=== PATIENT | female | born 1950 | race Caucasian/White ===

== ENCOUNTER 2023-04-17 17:53 | Observation (INO) | payer MEDICARE, OTHER ==
[2023-04-17 20:25] LABS: Absolute Neutrophil Ct (ANC) 3.36 x10^3/uL (1.4-6.9); BASOPHIL % 0.3 % (0.0-0.4); Basophil (Absolute #) 0.02 x10^3/uL (0-0.4); Eosinophil % 3.7 % (0.00-5.0); Eosinophil (Absolute #) 0.23 x10^3/uL (0-0.5); Hematocrit 40.2 % (35-47); Hemoglobin 13.8 g/dL (12.0-16.0); IMMATURE GRAN # 0.02 x10^3u/L (0.00-0.03); IMMATURE GRAN % 0.3 % (0.00-0.4); Lymphocyte (Absolute #) 1.89 x10^3/uL (1.0-4.6); Lymphocytes % 30.1 % (24.0-44.0); Mean Cell Volume 90.5 fL (78-100); Mean Corpuscular Hemoglobin 31.1 pg (26-32); Mean Corpuscular Hgb Concent. 34.3 g/dL (32-36); Mean Platelet Volume 9.4 fL (7.5-11.0); Monocyte (Absolute #) 0.75 x10^3/uL (0.0-1.3); Neutrophil % 53.6 % (36.0-66.0); Platelet Count 193 x10^3/uL (150-450); Red Blood Count 4.44 x10^6/uL (4.1-5.4); Red Cell Distribution Width 12.5 % (11.5-14.0); White Blood Count 6.3 x10^3/uL (4.0-10.5)
[2023-04-17 20:40] LABS: ALBUMIN 4.3 g/dL (3.5-5.0); ALKALINE PHOSPHATASE 77 U/L (38-126); ANION GAP 10.3 MEQ/L (5-15); BLOOD UREA NITROGEN 19 mg/dL (7-17); CHLORIDE 98 mmol/L (98-107); Calcium 9.3 mg/dL (8.4-10.2); Carbon Dioxide 35 mmol/L (22-30); Creatinine 1 0.76 mg/dL (0.52-1.04); EST GLOMERULAR FILTRATION RATE > 60.0 ML/MIN; Glucose 83 mg/dL (74-106); SGOT/AST 37 U/L (14-36); SGPT/ALT 25 U/L (0-35); SODIUM 140 mmol/L (137-145); Total Protein 7.5 g/dL (6.3-8.2)
[2023-04-17 20:45] LABS: Potassium 2.6 mmol/L (3.5-5.1)
[2023-04-17] MEDS ORDERED: Klor Con PO ONE ×2 (20:49→21:09)
[2023-04-17] MEDS ORDERED: MAGNESIUM SULF 2 G/50 ML BAG 2 GM/50 ML PIGGYBACK IV SCH (21:00)
--- NOTE | 2023-04-17 21:06 | ERPHSYRPT ---
- History of Present Illness Time Seen by Provider: 04/17/23 20:59 Source: patient Exam Limitations: no limitations Patient Subjective Stated Complaint: Pt states "My dr had me get blood work today and my potassium was just over 2" Triage Nursing Assessment: Pt presented alert and oriented X 3, skin pwd. Pt ambulates with an upright steady gait, able to speak in clear full sentences. PT able to speka in clear full sentences. PT resting comfortalby on the bed. Physician History: Patient is a 72-year-old female presents to our ED as a referral from her nurse practitioner for treatment of hypokalemia. Patient is currently on a diuretic for blood pressure control. Patient is not on a standard blood pressure medicat ion due to allergy. Patient states she feels weak. No trauma. No fever. No nausea vomiting or diaphoresis. Symptoms are constant. Symptoms are moderate in intensity. No specific worsening improving factors. Patient voices no other complaints or concerns at this time. Portions of this note were created with voice recognition technology. There may be grammatical, spelling, punctuation or sound alike errors Timing/Duration: today Severity: moderate Associated Symptoms: denies symptoms, weakness Allergies/Adverse Reactions: diatrizoate sodium [From Hypaque] Allergy (Severe, Verified 04/17/23 18:23) anaphylaxis doxepin Allergy (Severe, Verified 04/17/23 18:23) trouble breathing, headache Penicillins Allergy (Severe, Verified 04/17/23 18:23) anaphylaxis prochlorperazine [From Compazine] Allergy (Severe, Verified 04/17/23 18:23) anaphylaxis pentobarbital [From Nembutal Sodium] Allergy (Unknown, Verified 04/17/23 18:23) acrivastine [From Semprex-D] Adverse Reaction (Severe, Verified 04/17/23 18:23) chest pain pseudoephedrine [From Semprex-D] Adverse Reaction (Severe, Verified 04/17/23 18:23) chest pain Bifidobacterium animalis [From Pamine FQ] Adverse Reaction (Intermediate, Verified 04/17/23 18:23) bloating and cramps estrogens, conjugated [From Premarin] Adverse Reaction (Intermediate, Verified 04/17/23 18:23) itching and ross Lactobacillus acidophilus [From Pamine FQ] Adverse Reaction (Intermediate, Verified 04/17/23 18:23) bloating and cramps Lactobacillus paracasei [From Pamine FQ] Adverse Reaction (Intermediate, Verified 04/17/23 18:23) bloating and cramps meloxicam Adverse Reaction (Intermediate, Verified 04/17/23 18:23) cramping abdominal pain nabumetone [From Relafen] Adverse Reaction (Intermediate, Verified 04/17/23 18:23) esophageal and abdominal injury omeprazole [From Prilosec] Adverse Reaction (Intermediate, Verified 04/17/23 18:23) pain under left breast scopolamine [From Pamine FQ] Adverse Reaction (Intermediate, Verified 04/17/23 18:23) bloating and cramps Streptococcus thermophilus [From Pamine FQ] Adverse Reaction (Intermediate, Verified 04/17/23 18:23) bloating and cramps indomethacin [From Indocin] Adverse Reaction (Mild, Verified 04/17/23 18:23) nausea/vomiting savilla Allergy (Intermediate, Uncoded 04/17/23 18:23) Hives viactin Adverse Reaction (Severe, Uncoded 04/17/23 18:23) diarrhea/abdominal pain shingles vaccine Adverse Reaction (Intermediate, Uncoded 04/17/23 18:23) headache, hot, itchy, pain, welts Home Medications: Amitriptyline HCl 10 mg PO DAILY 04/17/23 [History] Cyclobenzaprine HCl 10 mg [Cyclobenzaprine 10 MG] 10 mg PO TID 04/17/23 [History] Diclofenac Sodium [Voltaren Arthritis Pain] 50 gm TP BID 04/17/23 [History] Famotidine/Ca Carb/Mag Hydrox [Pepcid Complete Tablet Chew] 1 each PO DAILY 04/17/23 [History] Gabapentin 600 mg PO QID 04/17/23 [History] Metronidazole Vag Gel [METROGEL Vag Gel 0.75%] 70 gm VG DAILY PRN 04/17/23 [History] Pantoprazole Sodium 40 mg PO DAILY 04/17/23 [History] Polyethylene Glycol 3350 [Miralax] 17 gm PO DAILY 04/17/23 [History] Zonisamide 50 mg PO BID 04/17/23 [History] hydroCHLOROthiazide [Hydrochlorothiazide] 25 mg PO DAILY 04/17/23 [History] Hx Tetanus, Diphtheria Vaccination/Date Given: No Hx Influenza Vaccination/Date Given: Yes Hx Pneumococcal Vaccination/Date Given: No Immunizations Up to Date: No Travel Risk - International Travel Have you traveled outside of the country in past 3 weeks: No - Coronavirus Screening Are you exhibiting any of the following symptoms?: No Close contact with a COVID-19 positive Pt in past 14-21 Days: No - Vaccine Status Have you 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 - Vaccination Dates Date of 2cond Vaccination (if applicable): 2020 - Review of Systems Constitutional: No Symptoms, No Fever, No Chills Eyes: No Symptoms Ears, Nose, & Throat: No Symptoms Respiratory: No Symptoms, No Cough, No Dyspnea Cardiac: No Symptoms, No Chest Pain, No Edema, No Syncope Abdominal/Gastrointestinal: No Symptoms, No Abdominal Pain, No Nausea, No Vomiting, No Diarrhea Genitourinary Symptoms: No Symptoms, No Dysuria Musculoskeletal: No Symptoms, No Back Pain, No Neck Pain Skin: No Symptoms, No Rash Neurological: No Symptoms, No Dizziness, No Focal Weakness, No Sensory Changes Psychological: No Symptoms Endocrine: No Symptoms Hematologic/Lymphatic: No Symptoms Immunological/Allergic: No Symptoms All Other Systems: Reviewed and Negative - Past Medical History Pertinent Past Medical History: Yes Neurological History: Migraines, Seizures, TIA ENT History: Cataracts Cardiac History: High Cholesterol, Hypertension Respiratory History: No Pertinent History Endocrine Medical History: Other Musculoskeletal History: Degenerative Disk Disease, Fibromyalgia, Other GI Medical History: Gallbladder Disease, Other History: Other Psycho-Social History: No Pertinent History Female Reproductive Disorders: Other Other Medical History: renal cyst. thyroid cyst. bladder trouble. endometrial hyperplasia. bulging disc - Past Surgical History Past Surgical History: Yes Cardiac: No Pertinent History Respiratory: No Pertinent History Gastrointestinal: Cholecystectomy Genitourinary: No Pertinent History Musculoskeletal: No Pertinent History Female Surgical History: Tubal Ligation - Social History Smoking Status: Never smoker Exposure to second hand smoke: No Drug Use: none Patient Lives Alone: No - Nursing Vital Signs Nursing Vital Signs: Initial Vital Signs Temperature 97.2 F 04/17/23 18:03 Pulse Rate 96 H 04/17/23 18:03 Respiratory Rate 20 04/17/23 18:03 Blood Pressure 182/80 04/17/23 18:03 O2 Sat by Pulse Oximetry 95 04/17/23 18:03 Pain Scale Pain Intensity 2 - Physical Exam General Appearance: no apparent distress, alert Eye Exam: PERRL/EOMI, eyes nml inspection Ears, Nose, Throat Exam: normal ENT inspection, TMs normal, pharynx normal, moist mucous membranes Neck Exam: normal inspection, non-tender, supple, full range of motion Respiratory Exam: normal breath sounds, lungs clear, airway intact, No respiratory distress Cardiovascular Exam: regular rate/rhythm, normal heart sounds, normal peripheral pulses Gastrointestinal/Abdomen Exam: soft, normal bowel sounds, No tenderness, No mass Back Exam: normal inspection, normal range of motion, No CVA tenderness, No vertebral tenderness Extremity Exam: normal inspection, normal range of motion, pelvis stable Neurologic Exam: alert, oriented x 3, cooperative, normal mood/affect, nml cerebellar function, nml station & gait, sensation nml, No motor deficits Skin Exam: normal color, warm, dry, No rash Lymphatic Exam: No adenopathy SpO2 Interpretation: normal SpO2: 96 O2 Delivery: Room Air - Course Nursing assessment & vital signs reviewed: Yes EKG Interpreted by Me: RATE ([id number]), Sinus Rhythm, NORMAL AXIS, NORMAL INTERVALS Ordered Tests: Active Orders 24 hr Category Date Time Status Telemetry q4h Care 04/17/23 20:49 Active CBC W DIFF Stat Lab 04/17/23 20:20 Completed CMP Stat Lab 04/17/23 20:20 Completed MAGNESIUM Stat Lab 04/17/23 20:50 Received Medication Summary Generic Name Dose Route Start Last Admin Trade Name Freq PRN Reason Stop Dose Admin Magnesium Sulfate/Water 2 gm in 50 mls @ 100 mls/hr 04/17/23 21:00 Magnesium Sulf 2 G/50 Ml Bag IV 04/18/23 21:29 Q30MIN GOGO Potassium Chloride 20 meq in 100 mls @ 50 mls/hr 04/17/23 21:00 Potassium Chloride 20 Meq In Water 100ml IV 04/18/23 00:59 Q2H GOGO Discontinued Medications Generic Name Dose Route Start Last Admin Trade Name Freq PRN Reason Stop Dose Admin Potassium Chloride 40 meq 04/17/23 20:49 Potassium Chloride Tab 10 Meq Tab PO 04/17/23 20:50 STAT ONE Lab/Rad Data: Laboratory Result Diagrams 04/17/23 20:20 04/17/23 20:20 Laboratory Results 04/17/23 04/17/23 Range/Units 20:20 20:20 WBC 6.3 (4.0-10.5) x10^3/uL RBC 4.44 (4.1-5.4) x10^6/uL Hgb 13.8 (12.0-16.0) g/dL Hct 40.2 (35-47) % MCV 90.5 (78-100) fL MCH 31.1 (26-32) pg MCHC 34.3 (32-36) g/dL RDW 12.5 (11.5-14.0) % Plt Count 193 (150-450) x10^3/uL MPV 9.4 (7.5-11.0) fL Gran % 53.6 (36.0-66.0) % Immature Gran % (Auto) 0.3 (0.00-0.4) % Nucleat RBC Rel Count 0.0 (0.00-0.1) % Eos # (Auto) 0.23 (0-0.5) x10^3/uL Immature Gran # (Auto) 0.02 (0.00-0.03) x10^3u/L Absolute Lymphs (auto) 1.89 (1.0-4.6) x10^3/uL Absolute Monos (auto) 0.75 (0.0-1.3) x10^3/uL Absolute Nucleated RBC 0.00 (0.00-0.01) x10^3u/L Lymphocytes % 30.1 (24.0-44.0) % Monocytes % 12.0 (0.0-12.0) % Eosinophils % 3.7 (0.00-5.0) % Basophils % 0.3 (0.0-0.4) % Absolute Granulocytes 3.36 (1.4-6.9) x10^3/uL Basophils # 0.02 (0-0.4) x10^3/uL Sodium 140 (137-145) mmol/L Potassium 2.6 L* (3.5-5.1) mmol/L Chloride 98 (98-107) mmol/L Carbon Dioxide 35 H (22-30) mmol/L Anion Gap 10.3 (5-15) MEQ/L BUN 19 H (7-17) mg/dL Creatinine 0.76 (0.52-1.04) mg/dL Estimated GFR > 60.0 ML/MIN Glucose 83 (74-106) mg/dL Calcium 9.3 (8.4-10.2) mg/dL Total Bilirubin 0.80 (0.2-1.3) mg/dL AST 37 H (14-36) U/L ALT 25 (0-35) U/L Alkaline Phosphatase 77 (38-126) U/L Serum Total Protein 7.5 (6.3-8.2) g/dL Albumin 4.3 (3.5-5.0) g/dL - Progress Progress: improved Progress Note: Patient 72-year-old female presents emergency department for as a referral for treatment for hypokalemia. Potassium currently 2.6. Patient states she has been feeling weak. Physical exam reveals a well-appearing female. No distress. at bedside. Patient will be admitted for potassium placement. Orders placed for 40 mill equivalent potassium chloride, 40 mEq K rider and 2 g magnesium. Plan of care discussed with patient. She agrees to admission to [facility] for further evaluation and treatment. Portions of this note were created with voice recognition technology. There may be grammatical, spelling, punctuation or sound alike errors Complexity of problem addressed is moderate. COPA (number of complexity of problem addressed) Minimal, Straight forward, one self limited or minor problem Low. Acute uncomplicated stable +/- admission, Any acute or chronic illness, 2 or more self-limited or minor problems. Moderate. Acute, complicated or with systemic illness. Chronic illness with exacerbation, New diagnosis with uncertain prognosis. 2 or more chronic stable illnesses. High. Any severe exacerbation or threat to bodily function, Any treatment side effects No critical care time. Complexity data reviewed and analyzed is extensive. Test ordered. Test reviewed. Clinical correlation made between findings and history and physical examination. Case/management discussed with Dr. Jack at 9:[address] Jack excepts admission to observation. Risk of complication and or risk morbidity/mortality of patient management is high. Patient will require IV potassium which requires telemetry monitoring. Patient will require hospitalization for further evaluation and treatment of hypokalemia Vital stable. Diagnosis hypokalemia, generalized weakness. Plan of care established for shared decision making. Patient agrees to admission. She voices no other complaints or concerns at this time. Portions of this note were created with voice recognition technology. There may be grammatical, spelling, punctuation or sound alike errors 04/17/23 21:07 04/17/23 21:11 Counseled pt/family regarding: lab results, diagnosis - Departure Departure Disposition: Observation Clinical Impression: Hypokalemia, Generalized weakness Condition: Stable Critical Care Time: No Referrals: GREGORY FERNANDEZ HYDRATE THICKENER OPERATOR [Primary Care Provider] - Follow up/PCP as directed
[2023-04-17] MEDS: POTASSIUM CHLORIDE 20 mEq IN WATER 100ML 20 MEQ/100 ML BAG IV SCH ×2 (21:10→23:20)
[2023-04-17] MEDS: Sodium Chloride 0.9% 1000 ML 1,000 ML IV SCH (21:12)
--- NOTE | 2023-04-18 01:55 | PCM.HP ---
History of Present Illness - Chief Complaint Chief Complaint: hypokalemia, generalized weakness Date: 04/18/23 Medications & Allergies Home Medications: Home Medication List Amitriptyline HCl 10 mg PO DAILY PRN 04/17/23 [History Confirmed 04/17/23] Cyclobenzaprine HCl 10 mg [Cyclobenzaprine 10 MG] 10 mg PO TID PRN 04/17/23 [History Confirmed 04/17/23] Diclofenac Sodium [Voltaren Arthritis Pain] 50 gm TP BID 04/17/23 [History Confirmed 04/17/23] Famotidine/Ca Carb/Mag Hydrox [Pepcid Complete Tablet Chew] 1 each PO DAILY 04/17/23 [History Confirmed 04/17/23] Gabapentin 600 mg PO QID 04/17/23 [History Confirmed 04/17/23] Polyethylene Glycol 3350 [Miralax] 17 gm PO DAILY 04/17/23 [History Confirmed 04/17/23] Zonisamide 50 mg PO BID 04/17/23 [History Confirmed 04/17/23] hydroCHLOROthiazide [Hydrochlorothiazide] 25 mg PO DAILY 04/17/23 [History Confirmed 04/17/23] Allergies/Adverse Reactions: Allergies Allergy/AdvReac Type Severity Reaction Status Date / Time diatrizoate sodium Allergy Severe anaphylaxis Verified 04/17/23 18:23 [From Hypaque] doxepin Allergy Severe trouble Verified 04/17/23 18:23 breathing, headache Penicillins Allergy Severe anaphylaxis Verified 04/17/23 18:23 prochlorperazine Allergy Severe anaphylaxis Verified 04/17/23 18:23 [From Compazine] pentobarbital Allergy Unknown Verified 04/17/23 18:23 [From Nembutal Sodium] acrivastine [From Semprex-D] AdvReac Severe chest pain Verified 04/17/23 18:23 pseudoephedrine AdvReac Severe chest pain Verified 04/17/23 18:23 [From Semprex-D] Bifidobacterium animalis AdvReac Intermediate bloating Verified 04/17/23 18:23 [From Pamine FQ] and cramps estrogens, conjugated AdvReac Intermediate itching Verified 04/17/23 18:23 [From Premarin] and ross Lactobacillus acidophilus AdvReac Intermediate bloating Verified 04/17/23 18:23 [From Pamine FQ] and cramps Lactobacillus paracasei AdvReac Intermediate bloating Verified 04/17/23 18:23 [From Pamine FQ] and cramps meloxicam AdvReac Intermediate cramping Verified 04/17/23 18:23 abdominal pain nabumetone [From Relafen] AdvReac Intermediate esophageal Verified 04/17/23 18:23 and abdominal injury omeprazole [From Prilosec] AdvReac Intermediate pain under Verified 04/17/23 18:23 left breast scopolamine [From Pamine FQ] AdvReac Intermediate bloating Verified 04/17/23 18: 23 and cramps Streptococcus thermophilus AdvReac Intermediate bloating Verified 04/17/23 18:23 [From Pamine FQ] and cramps indomethacin [From Indocin] AdvReac Mild nausea/vomi Verified 04/17/23 18:23 ting savilla Allergy Intermediate Hives Uncoded 04/17/23 18:23 viactin AdvReac Severe diarrhea/abdominal Uncoded 04/17/23 18:23 pain shingles vaccine AdvReac Intermediate headache, Uncoded 04/17/23 18:23 hot, itchy, pain, welts - Past Medical History Past Medical History: Yes Neurological History: Migraines, Seizures, TIA ENT History: Cataracts Cardiac History: High Cholesterol, Hypertension Respiratory History: No Pertinent History Endocrine Medical History: Other Musculoskelatal History: Degenerative Disk Disease, Fibromyalgia, Other GI Medical History: Gallbladder Disease, Irritable Bowel, Other History: Other Pyscho-Social History: No Pertinent History Reproductive Disorders: Other Comment: renal cyst. thyroid cyst. bladder trouble. endometrial hyperplasia. bulging disc. IBS - Female History Are you now?: No - Past Surgical History Past Surgical History: Yes Neuro Surgical History: No Pertinent History Cardiac History: No Pertinent History Respiratory Surgery: No Pertinent History GI Surgical History: Cholecystectomy Genitourinary Surgical Hx: No Pertinent History Musculskeletal Surgical Hx: No Pertinent History Female Surgical History: Tubal Ligation - Social History Smoking Status: Never smoker Exposure to second hand smoke: No Alcohol: None Drug Use: none - Physical Exam Vital Signs: Vital Signs - 24 hr Temp Pulse Resp BP BP Pulse Ox 04/18/23 00:00 20 04/17/23 23:45 97.2 F 71 18 151/67 95 04/17/23 21:13 96 04/17/23 21:00 71 13 148/72 96 04/17/23 20:49 97.1 F 71 18 168/79 94 L 04/17/23 20:30 74 10 L 139/68 97 04/17/23 20:00 72 21 143/67 96 04/17/23 19:30 89 18 146/62 96 04/17/23 18:03 97.2 F 96 H 20 182/80 95 Results - Labs Lab/Micro Results: Lab Results-Last 24 Hours 04/17/23 04/17/23 04/17/23 Range/Units 20:20 20:20 20:50 WBC 6.3 (4.0-10.5) x10^3/uL RBC 4.44 (4.1-5.4) x10^6/uL Hgb 13.8 (12.0-16.0) g/dL Hct 40.2 (35-47) % MCV 90.5 (78-100) fL MCH 31.1 (26-32) pg MCHC 34.3 (32-36) g/dL RDW 12.5 (11.5-14.0) % Plt Count 193 (150-450) x10^3/uL MPV 9.4 (7.5-11.0) fL Gran % 53.6 (36.0-66.0) % Immature Gran % (Auto) 0.3 (0.00-0.4) % Nucleat RBC Rel Count 0.0 (0.00-0.1) % Eos # (Auto) 0.23 (0-0.5) x10^3/uL Immature Gran # (Auto) 0.02 (0.00-0.03) x10^3u/L Absolute Lymphs (auto) 1.89 (1.0-4.6) x10^3/uL Absolute Monos (auto) 0.75 (0.0-1.3) x10^3/uL Absolute Nucleated RBC 0.00 (0.00-0.01) x10^3u/L Lymphocytes % 30.1 (24.0-44.0) % Monocytes % 12.0 (0.0-12.0) % Eosinophils % 3.7 (0.00-5.0) % Basophils % 0.3 (0.0-0.4) % Absolute Granulocytes 3.36 (1.4-6.9) x10^3/uL Basophils # 0.02 (0-0.4) x10^3/uL Sodium 140 (137-145) mmol/L Potassium 2.6 L* (3.5-5.1) mmol/L Chloride 98 (98-107) mmol/L Carbon Dioxide 35 H (22-30) mmol/L Anion Gap 10.3 (5-15) MEQ/L BUN 19 H (7-17) mg/dL Creatinine 0.76 (0.52-1.04) mg/dL Estimated GFR > 60.0 ML/MIN Glucose 83 (74-106) mg/dL Calcium 9.3 (8.4-10.2) mg/dL Magnesium 2.3 (1.6-2.3) mg/dL Total Bilirubin 0.80 (0.2-1.3) mg/dL AST 37 H (14-36) U/L ALT 25 (0-35) U/L Alkaline Phosphatase 77 (38-126) U/L Serum Total Protein 7.5 (6.3-8.2) g/dL Albumin 4.3 (3.5-5.0) g/dL Assessment/Plan (1) Hypokalemia Current Visit: Yes Status: Acute Assessment & Plan: ASSESSMENT 1. Hypokalemia 2. Hypertension 3. Hyperlipidemia PLAN 1. Replete K - received 40 PO/40 IV in ED; repeat K now 2. Resume all homed medications except of HCTZ 3. She will need an alternative to her HCTZ for BP management upon discharge Lovenox/PPI The entirety of this encounter was done via telemedicine Marcos Jack MD Pulmonary and Critical Care Medicine Code(s): E87.6 - HYPOKALEMIA Telemedicine Encounter - Telemedicine Encounter Telemedicine Encounter: The entirety of this encounter was performed via Telemedicine"
[2023-04-18] MEDS ORDERED: Klor Con PO ONE (03:08)
[2023-04-18] MEDS: POTASSIUM CHLORIDE 20 mEq IN WATER 100ML 20 MEQ/100 ML BAG IV SCH ×2 (03:13→10:31)
[2023-04-18 06:27] LABS: Absolute Neutrophil Ct (ANC) 2.88 x10^3/uL (1.4-6.9); BASOPHIL % 0.5 % (0.0-0.4); Basophil (Absolute #) 0.03 x10^3/uL (0-0.4); Eosinophil % 4.3 % (0.00-5.0); Eosinophil (Absolute #) 0.25 x10^3/uL (0-0.5); Hematocrit 37.9 % (35-47); Hemoglobin 13.3 g/dL (12.0-16.0); IMMATURE GRAN # 0.01 x10^3u/L (0.00-0.03); IMMATURE GRAN % 0.2 % (0.00-0.4); Lymphocyte (Absolute #) 1.93 x10^3/uL (1.0-4.6); Lymphocytes % 33.2 % (24.0-44.0); Mean Cell Volume 88.8 fL (78-100); Mean Corpuscular Hemoglobin 31.1 pg (26-32); Mean Corpuscular Hgb Concent. 35.1 g/dL (32-36); Mean Platelet Volume 9.7 fL (7.5-11.0); Monocyte (Absolute #) 0.71 x10^3/uL (0.0-1.3); Monocytes % 12.2 % (0.0-12.0); Neutrophil % 49.6 % (36.0-66.0); Platelet Count 182 x10^3/uL (150-450); Red Blood Count 4.27 x10^6/uL (4.1-5.4); Red Cell Distribution Width 12.8 % (11.5-14.0); White Blood Count 5.8 x10^3/uL (4.0-10.5)
[2023-04-18] MEDS ORDERED: Cyclobenzaprine 10 MG PO PRN (07:15)
[2023-04-18] MEDS ORDERED: AMITRIPTYLINE HCL 10 MG PO PRN (07:15)
[2023-04-18] MEDS ORDERED: ELAVIL 10 MG PO PRN (07:19)
[2023-04-18] MEDS ORDERED: MEDICATION INTERVENTION MC SCH (07:30)
[2023-04-18] MEDS: Sodium Chloride 0.9% 1000 ML 1,000 ML IV SCH (08:05)
[2023-04-18] MEDS ORDERED: [UNRECOGNIZED DRUG - OTHER] PO SCH (10:00)
[2023-04-18] MEDS ORDERED: Pepcid 20 MG PO SCH (10:00)
[2023-04-18] MEDS ORDERED: FAMOTIDINE PO SCH (10:00)
[2023-04-18] MEDS ORDERED: NON-FORMULARY ITEM (Gabapentin [Gabapentin] 600 MG Tablet) PO SCH (10:00)
[2023-04-18] MEDS ORDERED: ENOXAPARIN SODIUM SQ SCH (10:00)
[2023-04-18] MEDS ORDERED: DICLOFENAC SODIUM TP SCH (10:00)
[2023-04-18] MEDS ORDERED: CA CARB PO SCH (10:00)
[2023-04-18] MEDS ORDERED: Miralax Powder 17GM PACKET PO SCH ×2 (10:00→22:00)
[2023-04-18] MEDS ORDERED: MAG HYDROX PO SCH (10:00)
[2023-04-18] MEDS ORDERED: ZONISAMIDE 50 MG PO SCH (10:00)
[2023-04-18] MEDS: NEURONTIN PO SCH ×2 (10:30→14:29)
[2023-04-18] MEDS ORDERED: PATIENT OWN MEDICATION PO SCH (11:00)
--- NOTE | 2023-04-18 12:31 | PCM.DS ---
Discharge Summary Date of Admission: 04/17/23 21:31 Date of Discharge: 04/18/23 Admitting Physician: JASMIN MULLINS MD Primary Care Provider: JOSE CARRERO Allergies Allergies diatrizoate sodium [From Hypaque] Allergy (Severe, Verified 04/17/23 18:23) anaphylaxis doxepin Allergy (Severe, Verified 04/17/23 18:23) trouble breathing, headache Penicillins Allergy (Severe, Verified 04/17/23 18:23) anaphylaxis prochlorperazine [From Compazine] Allergy (Severe, Verified 04/17/23 18:23) anaphylaxis pentobarbital [From Nembutal Sodium] Allergy (Unknown, Verified 04/17/23 18:23) acrivastine [From Semprex-D] Adverse Reaction (Severe, Verified 04/17/23 18:23) chest pain pseudoephedrine [From Semprex-D] Adverse Reaction (Severe, Verified 04/17/23 18:23) chest pain Bifidobacterium animalis [From Pamine FQ] Adverse Reaction (Intermediate, Verified 04/17/23 18:23) bloating and cramps estrogens, conjugated [From Premarin] Adverse Reaction (Intermediate, Verified 04/17/23 18:23) itching and ross Lactobacillus acidophilus [From Pamine FQ] Adverse Reaction (Intermediate, Verified 04/17/23 18:23) bloating and cramps Lactobacillus paracasei [From Pamine FQ] Adverse Reaction (Intermediate, Verified 04/17/23 18:23) bloating and cramps meloxicam Adverse Reaction (Intermediate, Verified 04/17/23 18:23) cramping abdominal pain nabumetone [From Relafen] Adverse Reaction (Intermediate, Verified 04/17/23 18:23) esophageal and abdominal injury omeprazole [From Prilosec] Adverse Reaction (Intermediate, Verified 04/17/23 18:23) pain under left breast scopolamine [From Pamine FQ] Adverse Reaction (Intermediate, Verified 04/17/23 18:23) bloating and cramps Streptococcus thermophilus [From Pamine FQ] Adverse Reaction (Intermediate, Verified 04/17/23 18:23) bloating and cramps indomethacin [From Indocin] Adverse Reaction (Mild, Verified 04/17/23 18:23) nausea/vomiting savilla Allergy (Intermediate, Uncoded 04/17/23 18:23) Hives viactin Adverse Reaction (Severe, Uncoded 04/17/23 18:23) diarrhea/abdominal pain shingles vaccine Adverse Reaction (Intermediate, Uncoded 04/17/23 18:23) headache, hot, itchy, pain, [facility] Summary - Hospital Course Hospital Course: Mrs. Osborne is a 72-year-old female with a pmxh of HTN, Migraines, seizures, HLD, DDD, and fibromyalgia admitted for treatment of hypokalemia most likely resultant from her HCTZ. Patient responded well to potassium chloride infusions and will discharge home on potassium 40 meq daily x 3 days. Advised close follow up with pcp in 3 days for re-evaluation, hold HCTZ until follow up, bmp prior. All appropriate labs, diagnostic procedures, consultations, and treatments ordered for the above diagnoses. All labs,EKG, imaging and chart reviewed by me. I saw the images also. All labs and imaging discussed with the patient/family. I also discussed with nurse, manager of case, pharmacist and consultants involved in patient 's care.I spent 35 minutes for planning and coordinating safe discharge of this patient including exam, discussing hospital stay and discharge instructions with patient & caregivers, preparation of discharge records, prescriptions & referral forms and addressing any questions/concerns the patient had as documented above. - Vitals & Intake/Output Vital Signs: Vital Signs Temperature 97.5 F 04/18/23 06:58 Pulse Rate 60 04/18/23 06:58 Respiratory Rate 15 04/18/23 06:58 Blood Pressure 146/67 04/18/23 06:58 O2 Sat by Pulse Oximetry 95 04/18/23 06:58 Intake & Output: Intake & Output 04/16/23 04/17/23 04/18/23 04/19/23 11:59 11:59 11:59 11:59 Intake Total 1336 Output Total 750 Balance 586 Weight 75.5 kg - Lab Result Diagrams: 04/18/23 05:13 04/18/23 16:00 Lab Results-Last 24 Hrs: Lab Results-Last 24 Hours 04/17/23 04/17/23 04/17/23 Range/Units 20:20 20:20 20:50 WBC 6.3 (4.0-10.5) x10^3/uL RBC 4.44 (4.1-5.4) x10^6/uL Hgb 13.8 (12.0-16.0) g/dL Hct 40.2 (35-47) % MCV 90.5 (78-100) fL MCH 31.1 (26-32) pg MCHC 34.3 (32-36) g/dL RDW 12.5 (11.5-14.0) % Plt Count 193 (150-450) x10^3/uL MPV 9.4 (7.5-11.0) fL Gran % 53.6 (36.0-66.0) % Immature Gran % (Auto) 0.3 (0.00-0.4) % Nucleat RBC Rel Count 0.0 (0.00-0.1) % Eos # (Auto) 0.23 (0-0.5) x10^3/uL Immature Gran # (Auto) 0.02 (0.00-0.03) x10^3u/L Absolute Lymphs (auto) 1.89 (1.0-4.6) x10^3/uL Absolute Monos (auto) 0.75 (0.0-1.3) x10^3/uL Absolute Nucleated RBC 0.00 (0.00-0.01) x10^3u/L Lymphocytes % 30.1 (24.0-44.0) % Monocytes % 12.0 (0.0-12.0) % Eosinophils % 3.7 (0.00-5.0) % Basophils % 0.3 (0.0-0.4) % Absolute Granulocytes 3.36 (1.4-6.9) x10^3/uL Basophils # 0.02 (0-0.4) x10^3/uL Sodium 140 (137-145) mmol/L Potassium 2.6 L* (3.5-5.1) mmol/L Chloride 98 (98-107) mmol/L Carbon Dioxide 35 H (22-30) mmol/L Anion Gap 10.3 (5-15) MEQ/L BUN 19 H (7-17) mg/dL Creatinine 0.76 (0.52-1.04) mg/dL Estimated GFR > 60.0 ML/MIN Glucose 83 (74-106) mg/dL Calcium 9.3 (8.4-10.2) mg/dL Magnesium 2.3 (1.6-2.3) mg/dL Total Bilirubin 0.80 (0.2-1.3) mg/dL AST 37 H (14-36) U/L ALT 25 (0-35) U/L Alkaline Phosphatase 77 (38-126) U/L Serum Total Protein 7.5 (6.3-8.2) g/dL Albumin 4.3 (3.5-5.0) g/dL 04/18/23 04/18/23 Range/Units 02:24 05:13 WBC 5.8 (4.0-10.5) x10^3/uL RBC 4.27 (4.1-5.4) x10^6/uL Hgb 13.3 (12.0-16.0) g/dL Hct 37.9 (35-47) % MCV 88.8 (78-100) fL MCH 31.1 (26-32) pg MCHC 35.1 (32-36) g/dL RDW 12.8 (11.5-14.0) % Plt Count 182 (150-450) x10^3/uL MPV 9.7 (7.5-11.0) fL Gran % 49.6 (36.0-66.0) % Immature Gran % (Auto) 0.2 (0.00-0.4) % Nucleat RBC Rel Count 0.0 (0.00-0.1) % Eos # (Auto) 0.25 (0-0.5) x10^3/uL Immature Gran # (Auto) 0.01 (0.00-0.03) x10^3u/L Absolute Lymphs (auto) 1.93 (1.0-4.6) x10^3/uL Absolute Monos (auto) 0.71 (0.0-1.3) x10^3/uL Absolute Nucleated RBC 0.00 (0.00-0.01) x10^3u/L Lymphocytes % 33.2 (24.0-44.0) % Monocytes % 12.2 H (0.0-12.0) % Eosinophils % 4.3 (0.00-5.0) % Basophils % 0.5 (0.0-0.4) % Absolute Granulocytes 2.88 (1.4-6.9) x10^3/uL Basophils # 0.03 (0-0.4) x10^3/uL Sodium (137-145) mmol/L Potassium 3.1 L (3.5-5.1) mmol/L Chloride (98-107) mmol/L Carbon Dioxide (22-30) mmol/L Anion Gap (5-15) MEQ/L BUN (7-17) mg/dL Creatinine (0.52-1.04) mg/dL Estimated GFR ML/MIN Glucose (74-106) mg/dL Calcium (8.4-10.2) mg/dL Magnesium (1.6-2.3) mg/dL Total Bilirubin (0.2-1.3) mg/dL AST (14-36) U/L ALT (0-35) U/L Alkaline Phosphatase (38-126) U/L Serum Total Protein (6.3-8.2) g/dL Albumin (3.5-5.0) g/dL Discharge Exam General Appearance: no apparent distress Neurologic Exam: alert, oriented x 3 Eye Exam: PERRL Ears, Nose, Throat Exam: normal ENT inspection Respiratory Exam: normal breath sounds, lungs clear Cardiovascular Exam: regular rate/rhythm, normal heart sounds Gastrointestinal/Abdomen Exam: soft, normal bowel sounds Rectal Exam: deferred Extremity Exam: normal inspection Skin Exam: pale Final Diagnosis/Problem List - Final Discharge Diagnosis/Problem (1) Generalized weakness Current Visit: Yes Status: Acute Assessment & Plan: -Secondary to hypokalemia, improved Code(s): R53.1 - WEAKNESS (2) Hypokalemia Current Visit: Yes Status: Acute Assessment & Plan: -Replenished, discharge following potassium infusion with follow up stable potassium levels, will send home on oral supplementation of potassium 40 meq daily x 3 days, advised close follow up with PCP in 3 days with [facility] prior Code(s): E87.6 - HYPOKALEMIA Telemedicine Encounter - Telemedicine Encounter Telemedicine Encounter: The entirety of this encounter was performed via Telemedicine" - Discharge Disposition: Home, Self-Care Condition: Stable Prescriptions: New Potassium Chloride 40 meq PO DAILY 3 Days #6 tablet Continue Amitriptyline HCl 10 mg PO DAILY PRN PRN Reason: Insomnia Famotidine/Ca Carb/Mag Hydrox [Pepcid Complete Tablet Chew] 1 each PO DAILY Polyethylene Glycol 3350 [Miralax] 17 gm PO DAILY Zonisamide 50 mg PO BID Gabapentin 600 mg PO QID Cyclobenzaprine HCl 10 mg [Cyclobenzaprine 10 MG] 10 mg PO TID PRN PRN Reason: Muscle Spasms Discontinued hydroCHLOROthiazide [Hydrochlorothiazide] 25 mg PO DAILY Outpatient Orders: BMP Time Frame: 3 Days, Facility: [facility], Location: LABORATORY Additional Instructions: Follow up with PCP in three days with lab work prior Follow up with: GREGORY FERNANDEZ FNP [Primary Care Provider] - Call for Appointment (in three days)
[2023-04-18 13:48] LABS: ALBUMIN 3.7 g/dL (3.5-5.0); ALKALINE PHOSPHATASE 80 U/L (38-126); ANION GAP 9.9 MEQ/L (5-15); BLOOD UREA NITROGEN 13 mg/dL (7-17); CHLORIDE 106 mmol/L (98-107); Calcium 8.7 mg/dL (8.4-10.2); Carbon Dioxide 26 mmol/L (22-30); Creatinine 1 0.65 mg/dL (0.52-1.04); EST GLOMERULAR FILTRATION RATE > 60.0 ML/MIN; Glucose 113 mg/dL (74-106); SGOT/AST 31 U/L (14-36); SGPT/ALT 21 U/L (0-35); SODIUM 139 mmol/L (137-145); Total Protein 6.4 g/dL (6.3-8.2)
[2023-04-18 13:56] LABS: Potassium 3.4 mmol/L (3.5-5.1)
[2023-04-18 17:13] VITALS: BP 135/64; PULSE 61; RESP 16; TEMP 98; O2SAT 95
== END 2023-04-18 18:25 | disposition home or self-care (01) ==
LOC: ED 17:53 → MED SURG 21:31
PROVIDERS: ADMIT Internal Medicine Critical Care Medicine; ATTEND Internal Medicine Critical Care Medicine
DX: E87.6 Hypokalemia (principal); R53.1 Weakness; I10 Essential (primary) hypertension; E78.5 Hyperlipidemia, unspecified; Z79.899 Other long term (current) drug therapy; Z20.828 Contact with and (suspected) exposure to other viral communicable diseases
CPT/HCPCS: 36000; 36415; 80053; 83735; 84132; 85025; 93268; 99284; G0378; J1650; J3480; A9270-GY